=== PATIENT | male | born 1990 | race Two or more races ===

== ENCOUNTER 2017-04-15 00:05 | Emergency (ER) | payer MEDICAID ==
[~2017-04-15] VITALS: Ht 165.1 cm; Wt 54.4 kg
[2017-04-15] MEDS ORDERED: IRON (00:26)
--- NOTE | 2017-04-15 00:31 | NUR ---
PT presents w/ multiple complaints. Chief complaints of left lower rib pain upon deep inhilation, nausea, and vomiting.
--- NOTE | 2017-04-15 00:32 | NUR ---
at bedside for MSE.
[2017-04-15 00:50] LABS: *BILIRUBIN,URIN NEGATIVE (NEGATIVE); *BLOOD, URINE NEGATIVE (NEGATIVE); *CLARITY,URINE CLEAR (CLEAR); *COLOR,URINE STRAW (YELLOW); *KETONES,URINE NEGATIVE (NEGATIVE); *PROTEIN,URINE NEGATIVE (NEGATIVE); *UROBILINOGEN,URINE 0.2 E.U./dl (NORMAL); LEUKOCYTE ESTERASE ,URINE NEGATIVE (NEGATIVE); NITRITE, URINE NEGATIVE (NEGATIVE); PH,URINE 6.5 (5.0-8.0); UGLUCOSE TRACE (NEGATIVE)
[2017-04-15 00:59] LABS: BACTERIA,URINE NONE SEEN /HPF (NONE SEEN); RBC,URINE NONE SEEN /HPF (0-3); WBC,URINE NONE SEEN /HPF (0-3)
[2017-04-15 01:00] LABS: SQUAMOUS EPITHELIAL CELL,UR FEW /HPF (NONE SEEN)
--- NOTE | 2017-04-15 01:02 | NUR ---
XRAY at PT bedside
--- NOTE | 2017-04-15 01:05 | NUR ---
PT ambulated to restroom w/ steady gait. No distress noted at this time.
--- NOTE | 2017-04-15 01:16 | NUR ---
Patient discharged to home in stable conditon. Written and verbal after care instructions given. Patient verbalizes understanding of instructions. All belongings taken w/ patient. Ambulated from ER w/ steady gait.
[2017-04-15 01:19] VITALS: BP 123/87
== END 2017-04-15 01:20 | disposition home or self-care (01) ==
LOC: ER 00:10
DX: F41.0 Panic disorder [episodic paroxysmal anxiety] (principal); D64.9 Anemia, unspecified
CPT/HCPCS: 71045; 81001; 93005; 99285; A4663